=== PATIENT | female | born 1990 | race Caucasian/White ===

== ENCOUNTER 2017-08-11 10:23 | Emergency (ER) | payer MEDICAID ==
[~2017-08-11] VITALS: Wt 71.5 kg
--- NOTE | 2017-08-11 11:38 | RADRPT ---
PROCEDURE: Obstetrical ultrasound . CLINICAL INDICATION: viability TECHNIQUE: Multiple sonographic images of the pelvis were obtained utilizing a transabdominal and endovaginal technique. The images were reviewed on a PACS workstation. COMPARISON: None. FINDINGS: There is a single intrauterine present with the crown-rump length measuring 2.1 cm and the gestational sac measuring 4.1 cm which corresponds to a calculated gestational age of 9 weeks and 2 days. No heart tones are identified. There are multiple hypoechoic areas adjacent to the gestational sac, consistent with subchorionic he morrhage. The ovaries are normal. The right ovary measures 4.0 x 2.3 cm. The left ovary measures 3.2 x 1.6 cm. There is a small amount of free fluid in the cul-de-sac. RPTAT: AA IMPRESSION: Single intrauterine at 9 weeks and 2 days. No heart tones noted, consistent with demise. Multiple small areas of subchorionic hemorrhage. .Paul Osorio MD, MD Date Time Electronically viewed and signed by .Paul Osorio MD, MD on 08/11/2017 11:38 .S/
[2017-08-11] MEDS ORDERED: ACET500C5 PO (12:18)
--- NOTE | 2017-08-11 12:40 | ERD ---
ER Documentation Chief Complaint Date/Time DATE: 08/11/17 TIME: 12:35 Chief Complaint FROM [facility] FOR US, 10 WEEKS , NOT BLEEDING HPI 26-year-old female who is approximately 10 weeks is sent here by her OB clinic for OB ultrasound. Bedside ultrasound done at clinic did not show any cardiac motion. Her provider is concerned for possible demise. Patient is SAB 1, LMP 05/28/2017. Denies vaginal bleeding. Denies pelvic pain. Denies fever or chills. Denies dysuria. ROS All systems reviewed and are negative except as per history of present illness. Medications Home Meds Active Scripts Acetaminophen* (Tylophen*) 500 Mg Capsule, 1 CAP PO Q6H Y for PAIN AND OR ELEVATED TEMP, #20 CAP Prov:SANDIE RIVERA COLLECTIONS ASSISTANT 08/11/17 Allergies Allergies: Coded Allergies: No Known Allergy (Unverified , 08/11/17) PMhx/Soc Medical and Surgical Hx: pt denies Medical Hx, pt denies Surgical Hx History of Surgery: No Anesthesia Reaction: No Hx Neurological Disorder: No Hx Respiratory Disorders: No Hx Cardiac Disorders: No Hx Psychiatric Problems: No Hx Miscellaneous Medical Probl: No Hx Alcohol Use: Yes (Socially ) Hx Substance Use: No Hx Tobacco Use: No Smoking Status: Never smoker Physical Exam Vitals Vital Signs Date Time Temp Pulse Resp B/P Pulse Ox O2 Delivery O2 Flow Rate FiO2 08/11/17 10:25 99.2 84 18 127/60 99 Physical Exam General: Well-developed, well-nourished, conscious and coherent, in no distress Skin: Warm and dry without rash, good texture and turgor Head: Normocephalic without evidence of trauma Eyes: Sclera and conjunctivae normal; pupils equal, round, and reactive to light; extraocular movements are intact Chest: Normal AP diameter. Good expansion without retractions. Nontender. Lungs are clear to auscultate bilaterally with good tidal volume Heart: Regular rate and rhythm. No murmur, rub, or gallops heard Abdomen: Soft and nontender without masses, guarding, or rebound. Bowel sounds are active. No hepatosplenomegaly Back: Without spinal or CVA tenderness Pelvis: Nontender to palpation and stable to compression Extremities: Full range of motion. Good strength bilaterally. No clubbing, cyanosis, or edema. Peripheral pulses are intact. Sensation intact Neuro: Alert and oriented 4, GCS 15. Cranial nerves grossly intact. Motor and sensory exams nonfocal. Moves all extremities. Speech clear. Gait normal Results 24 hrs PROCEDURE: Obstetrical ultrasound . CLINICAL INDICATION: viability TECHNIQUE: Multiple sonographic images of the pelvis were obtained utilizing a transabdominal and endovaginal technique. The images were reviewed on a PACS workstation. COMPARISON: None. FINDINGS: There is a single intrauterine present with the crown-rump length measuring 2.1 cm and the gestational sac measuring 4.1 cm which corresponds to a calculated gestational age of 9 weeks and 2 days. No heart tones are identified. There are multiple hypoechoic areas adjacent to the gestational sac, consistent with subchorionic hemorrhage. The ovaries are normal. The right ovary measures 4.0 x 2.3 cm. The left ovary measures 3.2 x 1.6 cm. There is a small amount of free fluid in the cul-de-sac. RPTAT: AA IMPRESSION: Single intrauterine at 9 weeks and 2 days. No heart tones noted, consistent with demise. Multiple small areas of subchorionic hemorrhage. .Paul Osorio MD, MD Date Time Electronically viewed and signed by .Paul Osorio MD, MD on 08/11/2017 11: 38 .S/ CC: SANDIE RIVERA. COLLECTIONS ASSISTANT Procedures/MDM Well-appearing 26-year-old female who is approximately 10 weeks present ED for OB ultrasound. Ultrasound showed a single intrauterine at 9 weeks and 2 days, on no heart tones noted, consistent with demise. Post small areas of subchorionic hemorrhage were seen as well. The finding of the ultrasound results, and advised to follow-up with her OB clinic. Anticipatory guidance provided for patient regarding spontaneous process. Patient advised to return to ED if she has heavy bleeding. Patient appears well, stable for discharge and outpatient management. Medical decision making shared with patient and family. Education provided to patient and family. Patient and family expressed understanding of the plan. Medications on discharge: Tylenol. Follow-up: Primary care provider in 2-3 days or return to ED if worse. Disclaimer: Inadvertent spelling and grammatical errors are likely due to EHR/ dictation software use and do not reflect on the overall quality of patient care. Also, please note that the electronic time recorded on this note does not necessarily reflect the actual time of the patient encounter. Departure Diagnosis: Primary Impression: demise Condition: Stable Patient Instructions: Possible Miscarriage (Threatened ) Referrals: [facility] [place] [id number] [facility] [address] [place] [address] OFFICE FAX , [facility] [address] [place] [address] DR. WILD, NOCATEE [address] [place] [address] DR CHAVEZ, [facility] [address] [facility] [id number] [address] [address] [facility] [facility] [address] [place] [address] [facility] [address] [place] [address] [facility] [id number] - [place], [facility] [address] [address] GONZALEZ, MERRY [address] [facility]. [address], [facility] [address] [address] [address] [address] [place], [place] [id number] Additional Instructions: Llame al doctor MAANA y linnea daniela EVE PARA DENTRO DE 2-3 BALES.Dgale a la secretaria que nosotros le instruimos hacer esta eve.Avise o llame si rice condicin se empeora antes de la eve. Regresa aqui si peor o no mejor. SANDIE RIVERA. ALICIA Aug 11, 2017 12:40
[2017-08-11 13:35] VITALS: BP 132/62; PULSE 72; RESP 18; TEMP 99.2
== END 2017-08-11 13:35 | disposition home or self-care (01) ==
LOC: FTE 10:23
DX: O02.1 Missed abortion (principal)
CPT/HCPCS: 76801; 76817; Z7502

== ENCOUNTER 2018-03-26 11:31 | Emergency (ER) | END 2018-03-26 14:01 | disposition home or self-care (01) ==

== ENCOUNTER 2018-04-13 11:10 | Emergency (ER) | END 2018-04-13 14:20 | disposition home or self-care (01) ==